=== PATIENT | male | born 1975 | race Caucasian/White ===

== ENCOUNTER 2022-01-15 15:29 | Emergency (ER) | payer BC, OTHER ==
[~2022-01-15] VITALS: Ht 182.9 cm; Wt 109.1 kg
[2022-01-15] MEDS ORDERED: tenecteplase 50mg kit IV ONE ×2 (15:31→18:20)
[2022-01-15] MEDS ORDERED: niCARDipine in NS 40mg/200ml (0.2mg/ml) IVPB IV ONE (15:31)
[2022-01-15] MEDS ORDERED: iohexol 350MG/ML 100ml bottle IV ONE (15:46)
[2022-01-15 15:58] LABS: EOSINOPHILS # (AUTO) 0.3 X10'3 (0-0.9); HEMATOCRIT 44.9 % (42.0-52.0); HEMOGLOBIN 15.8 g/dl (14.0-17.9); LYMPHOCYTES # (AUTO) 1.1 X10'3 (1.1-4.8); MEAN CORPUSCULAR HEMOGLOBIN 31.6 PG (27.0-31.0); MEAN CORPUSCULAR HGB CONC 35.3 g/dL (33.0-36.5); MEAN CORPUSCULAR VOLUME 89.6 FL (78-98); MEAN PLATELET VOLUME 7.2 FL (7.4-10.4); MONOCYTES # (AUTO) 0.5 X10'3 (0-0.9); MONOCYTES % (AUTO) 13.9 % (2-12); NEUTROPHILS # (AUTO) 1.6 X10'3 (1.8-7.7); NEUTROPHILS % (AUTO) 46.1 % (42-75); PLATELET COUNT 179 X10'3 (140-440); RED BLOOD COUNT 5.01 X10'6 (4.70-6.10); RED CELL DISTRIBUTION WIDTH 14.2 % (11.5-14.5); WHITE BLOOD COUNT 3.5 X10'3 (4.5-11.0)
[2022-01-15 16:08] LABS: APTT 27 SECONDS (22-32)
[2022-01-15 16:10] LABS: ALANINE AMINOTRANSFERASE 97 U/L (12-78); ALBUMIN 3.7 G/DL (3.4-5.0); ALBUMIN/GLOBULIN RATIO 1.2 (1.1-1.5); ALKALINE PHOSPHATASE 92 IU/L (46-116); ANION GAP 7 (8-16); ASPARTATE AMINO TRANSFERASE 47 U/L (10-37); BILIRUBIN,TOTAL 0.6 MG/DL (0.1-1.0); BLOOD UREA NITROGEN 14 MG/DL (7-18); BUN/CREATININE RATIO 10.1 (5.4-32.0); CALCIUM 8.5 MG/DL (8.5-10.1); CHLORIDE 105 MMOL/L (99-107); CREATININE 1.39 MG/DL (0.60-1.10); GLUCOSE 119 MG/DL (70-104); POTASSIUM 3.9 MMOL/L (3.5-5.1); SODIUM 142 MMOL/L (135-145); TOTAL CARBON DIOXIDE 30.3 MMOL/L (24-32); TOTAL PROTEIN 6.7 G/DL (6.4-8.2); eGFR 55 ML/MIN
--- NOTE | 2022-01-15 16:50 | NUR ---
VERBAL ORDER RECIEVED BY DR HOPKINS FOR TNK IV PT AT MAX DOSE. SEE STROKE ALERT DOCUMENTATION FORM
[2022-01-15 17:45] VITALS: BP 144/96
--- NOTE | 2022-01-15 17:55 | NUR ---
Patient was transferred to [facility] via EMS. Report called to ED nurse at [facility].
[2022-01-15] MEDS ORDERED: tenecteplase-TNKase inj 10 ML IV ONE ×2 (18:00→18:15)
== END 2022-01-15 18:28 ==
LOC: ER 15:30
DX: I63.9 Cerebral infarction, unspecified (principal); I99.8 Other disorder of circulatory system; R47.01 Aphasia; R29.810 Facial weakness; R53.1 Weakness; E78.00 Pure hypercholesterolemia, unspecified; E03.9 Hypothyroidism, unspecified; Z86.73 Personal history of transient ischemic attack (TIA), and cerebral infarction without residual deficits; Z85.9 Personal history of malignant neoplasm, unspecified; Z88.8 Allergy status to other drugs, medicaments and biological substances
CPT/HCPCS: 36415; 70450; 70496; 70498; 71045; 80053; 85025; 85610; 85730; 93005; 96374; 99291; J3101; J3490; Q9967